=== PATIENT | female | born 1980 | race Caucasian/White ===

== ENCOUNTER 2020-10-02 20:12 | Inpatient (IN) | payer OTHER, SELFPAY ==
[2020-10-02 20:10] VITALS: TEMP 36.9
[2020-10-02 21:01] VITALS: BP 117/73; PULSE 100
[2020-10-02 21:31] LABS: Basophils Percent Auto 0.2 % (0.2-1.2); Eosinophils Absolute Auto 0.1 K/mm3 (0-0.3); Eosinophils Percent Auto 1.2 % (0-4.4); Hematocrit 35.1 % (37.0-47.0); Hemoglobin 12.2 g/dL (12.0-15.0); Immature Granulocyte Absolute 0.03 K/mm3 (0.00-0.031); Immature Granulocyte Percent A 0.3 % (0-0.5); Lymphocytes Absolute Auto 3.48 K/mm3 (0.9-3.2); Lymphocytes Percent Auto 29.7 % (18.3-44.2); Mean Corpuscular HGB Conc 34.8 g/dl (32-36); Mean Corpuscular Hemoglobin 30.7 pg (26-34); Mean Corpuscular Volume 88.2 fl (80-100); Mean Platelet Volume 12.7 fl (7.4-10.4); Monocytes Absolute Auto 0.7 K/mm3 (0.1-0.6); Monocytes Percent Auto 5.5 % (2.6-8.5); Neutrophils Absolute Auto 7.4 K/mm3 (1.3-6.7); Neutrophils Percent Auto 63.1 % (45.5-73.1); Platelet Count Result 155 k/mm3 (150-375); Red Blood Count 3.98 M/mm3 (4.2-5.4); Red Cell Distribution Width 13.2 % (11.5-14.5); White Blood Count 11.7 K/mm3 (4.5-10.0)
[2020-10-02 22:00] VITALS: TEMP 36.6
[2020-10-02 22:01] VITALS: BP 107/72; PULSE 95
[2020-10-02 22:08] VITALS: BMI 34.1
--- NOTE | 2020-10-02 22:10 | LDADM ---
This patient, Lolly Watson, was admitted to Labor/Delivery/Recovery 106 on 10/02/20 at 20:12. Plans for labor, pain management and were discussed with patient. Patient/family oriented to hospital policies and general routines including ID bracelet, bed and alarms, visiting hours, pain management, procedures, bathroom and other care routines, personal items, smoking policy, room service/diet and guest tray routines, infant security routines, and visiting hours. Patient/Family are encouraged to report perceived risks to care and to ask questions if they do not understand what they are told or what they should do. See OBIX for further documentation.
[2020-10-02] MEDS: fentaNYL CITRATE INJ (*CRX) 100 MCG/2 ML VIAL 50 MCG IV PUSH (22:28)
[2020-10-02 23:01] VITALS: BP 103/62; PULSE 102
--- NOTE | 2020-10-02 23:46 | WPDANESEPPF ---
Anes - Initial Pre Proc Eval Procedure: labor epidural Date/Time: 10/02/20 23:46 Surgeon: Vladimir Lynch MD Pre Op Diagnosis: labor pain Pre Op Diagnosis: Leaking Patient Data Age: 40 Gender: F Height: 1.65 m Weight: 93 kg Last Vital Signs Pulse 102 H 10/02/20 23:01 BP 103/62 10/02/20 23:01 Allergies Allergy/AdvReac Type Severity Reaction Status Date / Time No Known Allergies Allergy Verified 09/30/20 12:36 Home Medications Medication Instructions Recorded Confirmed Type fluticasone propionate [Flonase] 1 spray INTRANASAL DAILY 09/30/20 09/30/20 History prenat.vits,raj,egm-hpjy-poeoj 1 tablet PO DAILY 09/30/20 09/30/20 History [ #2] valacyclovir [Valtrex] 500 mg PO DAILY 09/30/20 09/30/20 History Laboratory Tests 10/02/20 10/02/20 10/02/20 21:24 21:24 21:24 WBC 11.7 K/mm3 H K/mm3 (4.5-10.0) RBC 3.98 M/mm3 L M/mm3 (4.2-5.4) Hgb 12.2 g/dL g/dL (12.0-15.0) Hct 35.1 % L % (37.0-47.0) MCV 88.2 fl fl (80-100) MCH 30.7 pg pg (26-34) MCHC 34.8 g/dl g/dl (32-36) RDW 13.2 % % (11.5-14.5) Plt Count 155 k/mm3 k/mm3 (150-375) MPV 12.7 fl H fl (7.4-10.4) Immature Gran % (Auto) 0.3 % % (0-0.5) Neut % (Auto) 63.1 % % (45.5-73.1) Lymph % (Auto) 29.7 % % (18.3-44.2) [place] % (Auto) 5.5 % % (2.6-8.5) Eos % (Auto) 1.2 % % (0-4.4) Baso % (Auto) 0.2 % % (0.2-1.2) Lymph # (Auto) 3.48 K/mm3 H K/mm3 (0.9-3.2) [place] # (Auto) 0.7 K/mm3 H K/mm3 (0.1-0.6) Eos # (Auto) 0.1 K/mm3 K/mm3 (0-0.3) Baso # (Auto) 0.0 K/mm3 K/mm3 (0.0-0.1) Abs Immat Gran (auto) 0.03 K/mm3 K/mm3 (0.00-0.031) Absolute Neuts (auto) 7.4 K/mm3 H K/mm3 (1.3-6.7) Absolute Nucleated RBC 0.0 K/mm3 K/mm3 (0.0-0.012) Nucleated RBC % 0.0 % % (0.0-0.2) RPR Pending Blood Type A Positive Antibody Screen Negative Patient hx anesthesia problems: none Family hx anesthesia problems: none PMFSH Family History Family History (Updated 09/30/20 @ 12:39 by Danyell Quiroz RN) Grandparent Type 2 diabetes mellitus Skin cancer Father Hypertension High cholesterol Skin cancer Social History Social History Smoking status: Never smoker Substance use: never Spiritual care concerns: No Anes - Eval Final PreProcedure Day of Procedure 10/02/20 23:46 Patient weight: obese ASA classification: II Anesthesia type and monitoring: regional epidural Informed Consent: The patient's anesthetic plan and its attendant risks and benefits were discussed with the patient/family/POA. Questions were solicited and answers provided to the satisfaction of the patient/family/POA.
[2020-10-03] VITALS (115 sets, daily range): BP systolic 68–134; BP diastolic 39–101; PULSE 73–206; RESP 16–18; TEMP 36.6–37.4; O2SAT 70–100
[2020-10-03] MEDS: LACTATED RINGERS 1,000 ML 125 ML IV CONT ×2 (00:19→01:05)
[2020-10-03] MEDS: ACETAMINOPHEN 500 MG TABLET 1000 MG PO (02:03)
[2020-10-03] MEDS: OXYTOCIN 30 UNITS/NS 500 ML 30 UNITS/500 ML BAG IV CONT (02:06)
--- NOTE | 2020-10-03 06:42 | WPDOBADMIT ---
Obstetrics - Admit Note Admission Note: record reviewed. Additions to the history and/or subsequent changes in the physical findings follow. 40 y/o at 37 1/7 weeks here after a gush of fluid. unremarkable. Comfortable with epidural. Labor has been augmented with oxytocin. AVSS NST reactive TOCO: contractions every 2-4 min ABD soft, nontender, gravid, vertex EXT nontender Cervix C/+2 A: IUP 37 1/7 weeks with SROM, labor. P: Begin pushing. Anticipate .
--- NOTE | 2020-10-03 06:47 | PM.OBPRVD ---
OB - Delivery Note Procedure Delivery date: 10/03/20 Procedure: Intrapartal events: None Induction method: none Delivery augmentation: pitocin Delivery monitor: external FHT and external uterine Route of delivery: Laceration Description: Perineal - 1st Degree Delivery repair: vicryl (3-0) Specimen: Yes (cord blood) Quantitative Blood Loss (ml): 120 Anesthesia type: Epidural Disposition: PACU Complications: None Narrative: 40 y/o at 37 1/7 weeks gestation who presented to the hospital after a gush of fluid. She received an epidural for pain control. Labor was augmented with oxytocin. Her labor progressed and her cervix dilated completely. She pushed with good effort and delivered the 's head to the perineum, followed by the body. The nose and mouth were bulb suctioned. After a delay, the cord was clamped and cut. The was handed off the field. Cord blood was collected. The placenta delivered spontaneously and was grossly normal in appearance. The usual 3 vessel cord was noted. A first degree midline perineal laceration was sustained. This was reapproximated using 3 0 Vicryl in interrupted, figure of eight fashion. Excellent hemostasis resulted as did excellent reapproximation of the normal anatomy. Needle and instrument counts were correct. The patient was taken to recovery room in stable condition. The went to the nursery in stable condition. I was present and scrubbed for the entire delivery. Baby Date of : 10/03/20 Time of : 06:22 Weeks of gestation at delivery: 37 gender: Male Weight (pounds): 7 Weight (ounces): 10 presentation: vertex position: Left Occiput Anterior Placenta delivery description: Spontaneous and Normal Configuration cord vessel description: 3 Vessels and Nuchal Cord score one minute: 8 score five minutes: 8
--- NOTE | 2020-10-03 06:49 | PM.OBDSVD ---
DS: Admitting Diagnosis Admitting Diagnosis Admitting Diagnosis: IUP at 37 1/7 weeks SROM DS: Discharge Diagnosis Discharge Diagnosis (1) (normal spontaneous vaginal delivery): Code(s): O80 - Encounter for full-term uncomplicated delivery Status: Acute OB - DS: Summary OB Procedures : None OB Procedures Intrapartum: Spontaneous Vag Delivery OB Procedures: : None DS: Data Data Completed and Pending Labs on day of discharge: Labs from last 24 hours 10/02/20 10/02/20 10/02/20 21:24 21:24 21:24 WBC 11.7 H RBC 3.98 L Hgb 12.2 Hct 35.1 L MCV 88.2 MCH 30.7 MCHC 34.8 RDW 13.2 Plt Count 155 MPV 12.7 H Immature Gran % (Auto) 0.3 Neut % (Auto) 63.1 Lymph % (Auto) 29.7 [place] % (Auto) 5.5 Eos % (Auto) 1.2 Baso % (Auto) 0.2 Lymph # (Auto) 3.48 H [place] # (Auto) 0.7 H Eos # (Auto) 0.1 Baso # (Auto) 0.0 Abs Immat Gran (auto) 0.03 Absolute Neuts (auto) 7.4 H Absolute Nucleated RBC 0.0 Nucleated RBC % 0.0 RPR Pending Blood Type A Positive Antibody Screen Negative Discharge Plan Discharge Attending physician on discharge: Vladimir Lynch Discharging Clinician: Vladimir Lynch Patient Disposition: Home, Self-Care Activity: pelvic rest Diet: regular Discharge Instructions: Call or return if temperature above 100.4? F, increased abdominal pain, increased vaginal bleeding or any new problems. Stand Alone Forms: General Discharge Information Follow-up/Referrals: Vladimir Lynch MD [Physician] - 6 Weeks Discharge Medications: New ibuprofen 600 mg tablet 600 mg PO Q6H PRN (Reason: cramps) Qty: 30 RF: 0 No Action valacyclovir [Valtrex] 500 mg Tablet 500 mg PO DAILY RF: 0 fluticasone propionate [Flonase] 50 mcg/actuation [place],Suspension 1 spray INTRANASAL DAILY RF: 0 #2 Tablet 1 tablet PO DAILY RF: 0 Date of admission: 10/02/20 20:12 Primary Care Provider: Sarah,Natlie Admitting Provider: Vladimir Lynch Attending physician on admission: Vladimir Lynch Condition: Stable
[2020-10-03 06:50] LABS: Rapid Plasma Reagin Non-Reactive (NonReactive)
[2020-10-03] MEDS: OXYTOCIN 30 UNITS/NS 500 ML 30 UNITS/500 ML BAG 125 UNITS IV CONT (07:05)
[2020-10-03] MEDS: WITCH HAZEL 40 PADS 1 PAD TOPICAL (09:09)
[2020-10-03] MEDS: BENZOCAINE 20% AER SPR (*SP) 56 GM CAN 1 SPRAY TOPICAL (09:10)
--- NOTE | 2020-10-03 09:30 | PC.NURSE ---
Patient transferred to post room #276 per wheelchair from labor and delivery. Support person present. Oriented to unit, room, information board, rooming in, admission packet and security measures. Patient verbalizes understanding.
[2020-10-03] MEDS: IBUPROFEN 600 MG TABLET PO ×3 (11:11→23:57)
[2020-10-03] MEDS: MULTIVIT/MIN/PREN/FOL AC/IRON TABLET 1 TAB PO (11:11)
--- NOTE | 2020-10-03 11:15 | PC.NURSE ---
Mother called out for assist with feeding. Consulted with patient, reports has fed eagerly first feeding. Reviewed infant feeding cues, frequencies, duration of feedings, feeding elimination flow sheet, and signs of adequate intake. Demonstrated stimulation techniques to wake for feeding. Assisted with infant to breast. Reviewed positioning/alignment in cross cradle, holding breast in U hold and guided asymmetrical latch on. was sleepy and unable to latch correctly within 15 minute attempt. made a few weak efforts to suckle. Suggested skin to skin and attempt again in 30 minutes. Infant is 37 week, discussed near term infant are freq. sleepy the first few days and need to be stimulated to wake to feed and during entire feeding to keep awake and nursing.
--- NOTE | 2020-10-03 12:40 | PC.NURSE ---
Demonstrated stimulation techniques to wake infant for feeding. Reviewed feeding cues, frequencies, duration of feedings, feeding elimination flow sheet, and signs of adequate intake. Assisted with infant to breast. Reviewed positioning/alignment in cross cradle, holding breast in U hold and guided asymmetrical latch on. Infant was sleepy and unable to latch correctly within 15 minute attempt. made a few weak efforts to suckle. Small amounts of sweet ease and formula to entice infant to feed with no success. Mother will bottle feed. Assisted mother with bottle feeding, infant sleepy and suckling intermittently. Advised should have 15 mls by 1300 or to call out for primary RN.
[2020-10-04 00:05] VITALS: BP 109/67; PULSE 82; RESP 18; TEMP 36.6; O2SAT 97
[2020-10-04 04:27] VITALS: BP 117/79; PULSE 76; RESP 18; TEMP 36.9; O2SAT 97
[2020-10-04 05:21] LABS: Hemoglobin 11.6 g/dL (12.0-15.0)
[2020-10-04] MEDS: IBUPROFEN 600 MG TABLET PO ×3 (06:23→18:55)
--- NOTE | 2020-10-04 08:59 | WPDANLDPN2 ---
Anes-Prog Note L&D Date/Time: 10/04/20 08:59 Comfortable throughout: labor and delivery Neuraxial method: epidural Epidural/Spinal procedure site: clean & non-tender Neuro status: Neuro function grossly intact. Cardiovascular status: normal Respiratory status: normal Airway patency: baseline Mental status: baseline Post-Op hydration status: normal Vital Signs: Last Vital Signs Temp 36.9 C 10/04/20 04:27 Pulse 76 10/04/20 04:27 Resp 18 10/04/20 04:27 BP 117/79 10/04/20 04:27 Pulse Ox 97 10/04/20 04:27 Pain score (VAS): 0/10 Post-procedural complaints: none Patient feedback: Patient satisfied with anesthetic care.
[2020-10-04 10:05] VITALS: BP 106/72; PULSE 85; RESP 18; TEMP 36.9; O2SAT 98
--- NOTE | 2020-10-04 11:13 | PM.OBPNVD ---
OB - PN: Subj Subjective Date/time seen: 10/04/20 11:13 Narrative: Pain OK. Would like circumcision for son. Would like to go home. OB - PN: Obj Data Labs CBC & Chem 7: 10/04/20 04:25 Labs: Laboratory Results - last 24 hr 10/04/20 04:25 Hgb 11.6 L Hct 34.0 L OB - PN A/P Plan Comments: A: PPD#1, doing well. P: Reviewe circ. Home to f/u 6 weeks. Exam Psych: Other: AVSS ABD soft, nontender, fundus firm EXT nontender
[2020-10-04] MEDS: MULTIVIT/MIN/PREN/FOL AC/IRON TABLET 1 TAB PO (12:16)
[2020-10-04] MEDS: DOCUSATE SODIUM 100 MG CAPSULE PO (12:17)
[2020-10-04 18:42] VITALS: BP 107/71; PULSE 76; RESP 18; TEMP 37.2; O2SAT 98
[2020-10-04] MEDS: ACETAMINOPHEN 325 MG TABLET 650 MG PO (20:25)
--- NOTE | 2020-10-05 02:02 | PM.OBPNVD ---
OB - PN: Subj Subjective Date/time seen: 10/05/20 02:02 Narrative: Pain OK. Would like to go home. OB - PN: Obj Data Labs CBC & Chem 7: 10/04/20 04:25 Labs: Laboratory Results - last 24 hr 10/04/20 04:25 Hgb 11.6 L Hct 34.0 L OB - PN A/P Plan Comments: A: PPD#2, doing well. P: Home to f/u 6 weeks. Exam Psych: Other: AVSS ABD soft, nontender, fundus firm EXT nontender
[2020-10-05] MEDS: ACETAMINOPHEN 325 MG TABLET 650 MG PO ×2 (06:09→13:01)
[2020-10-05] MEDS: IBUPROFEN 600 MG TABLET PO ×2 (06:09→13:00)
[2020-10-05] MEDS: BENZOCAINE 20% AER SPR (*SP) 56 GM CAN 1 SPRAY TOPICAL (07:35)
--- NOTE | 2020-10-05 07:39 | PC.NURSE ---
10/04/2020 at 1945 Patient viewed the discharge video Mother & Baby Care, The First Two Weeks . Patient was given the opportunity and encouraged to ask questions. Patient verbalized understanding of information shared and has been given the mother/baby guide for home reference.
[2020-10-05] MEDS: LANOLIN (LANSINOH) 7.5 GM CREAM 1 APPLIC TOPICAL (07:41)
[2020-10-05] MEDS: WITCH HAZEL 40 PADS 1 PAD TOPICAL (07:41)
[2020-10-05] MEDS: MULTIVIT/MIN/PREN/FOL AC/IRON TABLET 1 TAB PO (07:41)
[2020-10-05] MEDS: DOCUSATE SODIUM 100 MG CAPSULE PO (07:41)
[2020-10-05 08:00] VITALS: BP 124/69; PULSE 16; RESP 88; TEMP 36.8
--- NOTE | 2020-10-05 11:14 | PC.NURSE ---
Discharge instructions given to pt including follow up appt. date and time. Pt. verbalized understanding. No questions or concerns voiced. Very pleasant and cooperative. at side.
== END 2020-10-05 13:51 | disposition home or self-care (01) | DRG 807 ==
LOC: ANHLDR 10-03 06:50 → ANHOB2 10-03 09:40
PROVIDERS: Admitting Provider Obstetrics & Gynecology; PCP Physician Assistant; Visit Provider Obstetrics & Gynecology
DX: O76 Abnormality in fetal heart rate and rhythm complicating labor and delivery (principal); Z37.0 Single live birth; O70.0 First degree perineal laceration during delivery; O69.81X0 Labor and delivery complicated by cord around neck, without compression, not applicable or unspecified; Z3A.37 37 weeks gestation of pregnancy
CPT/HCPCS: 36415; 85014; 85018; 85025; 86592; 86850; 86900; 86901; A9270; J2590; J2795; J3010; J7120

== ENCOUNTER 2022-12-05 08:12 | Emergency (ER) | payer OTHER, SELFPAY ==
--- NOTE | ~2022-12-05 | XR_ITS ---
EXAMINATION: XR finger 2nd RT min 2V DATE: 12/05/2022 08:29 INDICATION: Right hand second digit injury. TECHNIQUE: 4 views of right hand second digit were obtained. COMPARISON: None. FINDINGS: Bone alignment is normal. There is a chip avulsion fracture of palmar base of second middle phalanx. 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 IMPRESSION: 1. Chip avulsion fracture of palmar base of second middle phalanx. Reviewed, dictated and finalized at location A.
--- NOTE | 2022-12-05 08:17 | ED.UPPEXIN ---
HPI - Extremity Injury (Upper) General Chief Complaint: Extremity Injury, Upper Stated Complaint: rt index injury injury Source: patient and RN notes reviewed History of Present Illness HPI narrative: 42-year-old female presents to urgent care with complaints of left index finger pain and swelling. Patient states yesterday she was playing catch with a basketball when the ball hit her finger just right. Patient denies any numbness, tingling, or any other injuries. Patient has no other complaints. Related Data Home Medications Medication Instructions Recorded Confirmed fluticasone propionate 50 1 spray intranasal DAILY 09/30/20 09/30/20 mcg/actuation nasal spray,suspension prenat.vits,raj,axb-oucm-rymkj 1 tablet PO DAILY 09/30/20 09/30/20 valacyclovir 500 mg tablet 500 mg PO DAILY 09/30/20 09/30/20 (Valtrex) fluoxetine 20 mg capsule mg 12/05/22 levonorgestrel-ethinyl estradiol tablet 12/05/22 0.1 mg-20 mcg tablet (Vienva) Allergies Allergy/AdvReac Type Severity Reaction Status Date / Time No Known Allergies Allergy Verified 12/05/22 08:18 Review of Systems Review of Systems: CONSTITUTIONAL: Denies fever, chills, or sweats. EYES: Denies visual changes, redness, or discharge. ENT: Denies otalgia and sore throat CARDIOVASCULAR: Denies chest pain, palpitations, or edema. RESPIRATORY: Denies cough or dyspnea. GASTROINTESTINAL: Denies abdominal pain, nausea, vomiting, or diarrhea. GENITOURINARY: Denies dysuria or hematuria. SKIN: Denies rash or itching. MUSCULOSKELETAL: left index finger pain and swelling NEUROLOGIC: Denies headache, numbness, or weakness. Pertinent positives per HPI. PMFSH Family History Family History (Updated 09/30/20 @ 12:39 by Danyell Quiroz RN) Grandparent Type 2 diabetes mellitus Skin cancer Father Hypertension High cholesterol Skin cancer Social History Social History Smoking status: Never smoker Substance use: never Spiritual care concerns: No Comments At the time of my signature, I reviewed and agree with the nursing past medical, surgical, social, and family history. There is no relevant family history pertinent to the patient complaint. Exam Narrative: GENERAL: This is a well-nourished, well-developed patient, in no apparent distress. HEAD: normocephalic, atraumatic. EYES: Sclera clear/white. Vision is grossly intact. EARS: External ears normal, auditory canals clear and without drainage. Hearing grossly intact. NOSE: External nose normal with no obvious nasal discharge, nares without redness, no rhinorrhea. THROAT: Mucous membranes moist, posterior pharynx clear. NECK: Neck supple, non-tender without lymphadenopathy, masses or thyromegaly. CARDIOVASCULAR: Regular rate RESPIRATORY: No respiratory distress GASTROINTESTINAL: Abdomen soft, non-tender, nondistended. Bowel sounds are active. No hepato-splenomegaly, or palpable masses. No guarding. SKIN: warm, intact with no suspicious lesions or rash, good texture and turgor. NEURO: awake, alert, and oriented to person, place and time. There were no obvious focal neurologic abnormalities. EXTREMITIES:Left index finger swollen and tender over the PIP joint and proximal phalanx. BACK: Nontender without deformity or crepitance. No flank tenderness. Course Course Level of Care: Express Care Visit Vital Signs Vital signs: Vital Signs Temperature 97.3 F L 12/05/22 08:20 Pulse Rate 71 12/05/22 08:20 Respiratory Rate 16 12/05/22 08:20 Blood Pressure 125/83 12/05/22 08:20 Pulse Oximetry 99 12/05/22 08:20 Temperature 97.3 F L 12/05/22 08:20 Pulse Rate 71 12/05/22 08:20 Respiratory Rate 16 12/05/22 08:20 Blood Pressure 125/83 12/05/22 08:20 Pulse Oximetry 99 12/05/22 08:20 Reviewed MDM - Extremity Injury (Upper) MDM Narrative Medical decision making narrative: Use the RICE method at home. May take ibuprofen and/or Tylenol if needed. follow-u
[2022-12-05 08:20] VITALS: BP 125/83; PULSE 71; RESP 16; TEMP 36.3; O2SAT 99
== END 2022-12-05 08:55 | disposition home or self-care (01) ==
PROVIDERS: Emergency Provider Nurse Practitioner Family; PCP Internal Medicine
DX: S62.620A Displaced fracture of middle phalanx of right index finger, initial encounter for closed fracture (principal); W21.03XA Struck by baseball, initial encounter; F41.9 Anxiety disorder, unspecified; F32.A Depression, unspecified; Z86.16 Personal history of COVID-19
CPT/HCPCS: 29125; 73140; 99214; G0463

== ENCOUNTER → 2022-12-09 15:49 | Outpatient (CLI) | payer OTHER, SELFPAY ==
--- NOTE | ~2022-12-09 | MM_ITS ---
EXAMINATION: MM screening wiliam BI w mel HISTORY: Screening mammogram TECHNIQUE: Craniocaudal and mediolateral oblique 3-D tomosynthesis images were obtained and synthetic 2-D images were generated. CAD analysis was submitted and interpreted. COMPARISON: None, baseline BREAST PARENCHYMAL COMPOSITION: The breasts are almost entirely fatty. FINDINGS: No suspicious mass, calcification, or architectural distortion are identified in either greta ast to suggest malignancy. IMPRESSION: 1. No mammographic evidence of malignancy. 2. Recommend routine screening mammography in one year. BI-RADS Category 1: Negative Reviewed, dictated and finalized at location A.
== END ==
PROVIDERS: PCP Internal Medicine; Visit Provider Obstetrics & Gynecology
DX: Z12.31 Encounter for screening mammogram for malignant neoplasm of breast (principal)
CPT/HCPCS: 77063; 77067

== ENCOUNTER 2023-04-15 08:47 | Emergency (ER) | payer OTHER, SELFPAY ==
[2023-04-15 09:01] VITALS: BP 106/82; PULSE 99; RESP 16; TEMP 36.5; O2SAT 100
--- NOTE | 2023-04-15 09:19 | ED.GENADULT ---
HPI - General Adult General Chief complaint: Upper Respiratory Infection Stated complaint: COUGH Time Seen by Provider: 04/15/23 09:20 Source: patient, RN notes reviewed and old records reviewed Mode of arrival: ambulatory Limitations: no limitations History of Present Illness HPI narrative: 42year old female who presents to [facility] care with complaints of loose nonproductive cough for the past 3 weeks which is worse at night. Patient reports that she does have history of sinus allergies and takes daily Zyrtec and nasal spray. Patient reports that she has taken OTC cough medications and did take some cold and flu medication without resolution of her symptoms. Patient denies any known fevers, chills or sweats, denies any dyspnea, respirations even and nonlabored with SAO2 100% on room air MD complaint: cough Onset (ago): week(s) (3) Associated symptoms: cough and other (post nasal drainage) Treatments prior to arrival: other (Zyrtec, nasal spray, OTC cough meds and cold and flu medication) Related Data Home Medications Medication Instructions Recorded Confirmed fluticasone propionate 50 1 spray intranasal DAILY 09/30/20 04/15/23 mcg/actuation nasal spray,suspension cetirizine 10 mg tablet (Zyrtec) 10 mg PO DAILY 12/05/22 04/15/23 fluoxetine 20 mg capsule 20 mg PO DAILY 12/05/22 04/15/23 levonorgestrel-ethinyl estradiol 1 tablet PO DAILY 12/05/22 04/15/23 0.1 mg-20 mcg tablet (Vienva) fenofibrate 160 mg tablet 160 mg PO DAILY 04/15/23 04/15/23 Allergies Allergy/AdvReac Type Severity Reaction Status Date / Time No Known Allergies Allergy Verified 04/15/23 08:59 Review of Systems Review of Systems: CONSTITUTIONAL: Denies malaise, chills, sweats, or fever. EYES: Denies visual changes, redness, or discharge. ENT: Reports some rhinorrhea, congestion,no sinus pain,no otalgia and no sore throat. CARDIOVASCULAR: Denies chest pain, palpitations, or edema. RESPIRATORY: Reports cough.? Denies dyspnea. GASTROINTESTINAL: Denies abdominal pain, nausea, vomiting, diarrhea SKIN: Denies rash or itching. MUSCULOSKELETAL: Denies myalgia. NEUROLOGIC: anterior headache. All systems reviewed & are unremarkable except as noted in HPI and below PMFSH Past Medical History Medical History (Updated 04/15/23 @ 09:49 by Marbella Phillips NP) Environmental allergies Surgical History Surgical History (Updated 04/15/23 @ 09:49 by Marbella Phillips NP) History of varicose vein ligation and stripping Family History Family History (Updated 09/30/20 @ 12:39 by Danyell Quiroz RN) Grandparent Type 2 diabetes mellitus Skin cancer Father Hypertension High cholesterol Skin cancer Social History Social History Smoking status: Never smoker Substance use: never Spiritual care concerns: No Comments At time of signature, agree with nursing past medical, surgical, social and family history. There is no relevant family history pertinent to the presenting complaint Exam Narrative: GENERAL: Well-appearing, well-nourished, and in no acute distress. HEAD: Normocephalic EYES: PERRLA, conjunctivae clear ENT: Nares clear, turbinates edematous and erythematous, clear discharge. Mucous membranes moist. TM pearly hernadez with dull light reflex bilaterally; no tragal tenderness. Oropharynx erythematous without lesions. Tonsils not enlarged and without exudate, no drooling, no hoarseness, no trismus, uvula midline.post nasal discharge NECK: Supple. No lymphadenopathy CHEST: Clear to auscultation, breath sounds equal. No wheezing, rhonchi, rales, or stridor. No respiratory distress, speaks in full sentences.cough for 3 weeks loose/ nonproductive. no tachypnea, SAO2 100% on room air. HEART: Regular rate and rhythm. No murmur heard. SKIN: Warm, dry, no rash. NEURO: Alert and oriented x3. PSYCH: Normal mood and affect Course Course Emergency Course: Patient is aware of diagnosis, underst
== END 2023-04-15 09:33 | disposition home or self-care (01) ==
PROVIDERS: Emergency Provider Registered Nurse; PCP Internal Medicine
DX: J01.40 Acute pansinusitis, unspecified (principal); R05.1 Acute cough
CPT/HCPCS: 99213; G0463

== ENCOUNTER 2023-08-11 18:01 | Emergency (ER) | payer OTHER, SELFPAY ==
--- NOTE | 2023-08-11 18:23 | ED.URI ---
HPI - URI/Sore Throat General Chief Complaint: Upper Respiratory Infection Stated Complaint: Sore throat Time Seen by Provider: 08/11/23 18:16 Source: patient Mode of arrival: ambulatory Limitations: no limitations History of Present Illness HPI Narrative: Patient presents to today complaining of sore throat since yesterday. Denies any additional symptoms to include congestion, rhinorrhea, fever, cough, shortness of breath. She currently rates her pain 7/10 and has been taking Tylenol and using salt water gargles without relief. States child is sick with URI symptoms at home. Related Data Home Medications Medication Instructions Recorded Confirmed fluticasone propionate 50 1 spray intranasal DAILY 09/30/20 08/11/23 mcg/actuation nasal spray,suspension cetirizine 10 mg tablet (Zyrtec) 10 mg PO DAILY 12/05/22 08/11/23 fluoxetine 20 mg capsule 20 mg PO DAILY 12/05/22 08/11/23 levonorgestrel-ethinyl estradiol 1 tablet PO DAILY 12/05/22 08/11/23 0.1 mg-20 mcg tablet (Vienva) fenofibrate 160 mg tablet 160 mg PO DAILY 04/15/23 08/11/23 Allergies Allergy/AdvReac Type Severity Reaction Status Date / Time No Known Allergies Allergy Verified 08/11/23 18:09 Review of Systems Review of Systems: CONSTITUTIONAL: Denies body aches, fever, chills, or sweats. EYES: Denies visual changes, redness, or discharge. ENT: Denies rhinorrhea, congestion, or otalgia.+ sore throat CARDIOVASCULAR: Denies chest pain, palpitations, or edema. RESPIRATORY: Denies cough or dyspnea. GASTROINTESTINAL: Denies abdominal pain, nausea, vomiting, or diarrhea. GENITOURINARY: Denies dysuria or hematuria. SKIN: Denies rash, itching, or wounds. MUSCULOSKELETAL: Denies back pain, joint pain, or myalgia. NEUROLOGIC: Denies headache, numbness, tingling, or weakness. PSYCH: Denies depression or anxiety. [facility] Past Medical History Medical History Environmental allergies Surgical History Surgical History History of varicose vein ligation and stripping Family History Family History Grandparent Type 2 diabetes mellitus Skin cancer Father Hypertension High cholesterol Skin cancer Social History Social History Smoking status: Never smoker Substance use: never Spiritual care concerns: No Comments At time of signature, I have reviewed and agree with nursing past medical, surgical, social and family history unless otherwise noted. Please see nursing chart for further information. There is no relevant family history pertinent to the presenting complaint Exam Narrative: GENERAL: Well-appearing, well-nourished, and in no acute distress. HEAD: Normocephalic, atraumatic. EYES: EOMI. No redness or drainage. Conjunctivae normal. ENT: Mucous membranes pink and moist. Nares clear. No rhinorrhea. TMs normal bilaterally. Throat without erythema or edema. No exudate. Uvula midline. NECK: Normal AROM. Supple. No lymphadenopathy. CHEST: No respiratory distress. Clear to auscultation. HEART: Regular rate and rhythm. No murmur appreciated. EXTREMITIES: Normal range of motion. No edema. SKIN: Warm, dry, no rash. Capillary refill normal. Normal skin turgor. NEURO: No focal deficits. Alert and oriented x3. Gait steady. PSYCH: Normal affect. No signs of depression or anxiety. Course Course Level of Care: Express Care Visit Vital Signs Vital signs: Vital Signs Temperature 98 F 08/11/23 18:25 Pulse Rate 96 08/11/23 18:25 Respiratory Rate 16 08/11/23 18:25 Blood Pressure 122/73 08/11/23 18:25 Pulse Oximetry 98 08/11/23 18:25 Temperature 98 F 08/11/23 18:25 Pulse Rate 96 08/11/23 18:25 Respiratory Rate 16 08/11/23 18:25 Blood Pressure 122/73
[2023-08-11 18:25] VITALS: BP 122/73; PULSE 96; RESP 16; TEMP 36.6; O2SAT 98
== END 2023-08-11 18:49 | disposition home or self-care (01) ==
PROVIDERS: Emergency Provider Nurse Practitioner; PCP Internal Medicine
DX: J02.9 Acute pharyngitis, unspecified (principal); Z20.822 Contact with and (suspected) exposure to COVID-19
CPT/HCPCS: 87081; 87426; 87804; 87880; 99213; G0463

== ENCOUNTER 2024-08-03 10:06 | Outpatient (CLI) | payer OTHER, SELFPAY ==
--- NOTE | ~2024-08-03 | MM_ITS ---
EXAMINATION: MM screening wiliam BI w mel HISTORY: Screening mammogram TECHNIQUE: Craniocaudal and mediolateral oblique 3-D tomosynthesis images were obtained and synthetic 2-D images were generated. CAD analysis was submitted and interpreted. COMPARISON: 12/09/2022 BREAST PARENCHYMAL COMPOSITION:Not Dense. The breasts are almost entirely fatty FINDINGS: No suspicious mass, calcification, or architectural distortion are identified in either greta ast to suggest malignancy. There has been no suspicious interval change. IMPRESSION: No mammographic evidence of malignancy. Recommend routine screening mammography in one year. BI-RADS Category 1: Negative Reviewed, dictated and finalized at location . APPLICATIONS REPRESENTATIVE
== END 2024-08-03 10:07 | disposition home or self-care (01) ==
PROVIDERS: PCP Internal Medicine; Visit Provider Obstetrics & Gynecology
DX: Z12.31 Encounter for screening mammogram for malignant neoplasm of breast (principal)
CPT/HCPCS: 77063; 77067

== ENCOUNTER 2025-05-15 09:18 | Emergency (ER) | payer OTHER, SELFPAY ==
--- NOTE | ~2025-05-15 | XR_ITS ---
EXAMINATION: XR foot LT min 3V, 05/15/2025 9:33 CDT HISTORY: left toe injury stubbed toe last night, no surg COMPARISON: No comparisons available. Findings: There is a nondisplaced fracture distal aspect of the proximal phalanx fifth digit with intra-articular extension No significant degenerative changes. Soft tissues unremarkable. Impression: Fractures detailed above Reviewed, dictated and finalized at location P. Impression: Fractures detailed above
[2025-05-15 09:29] VITALS: BP 121/88; PULSE 85; RESP 16; TEMP 36.4; O2SAT 99
--- NOTE | 2025-05-15 10:12 | ED.GENADULT ---
HPI - General Adult General Chief complaint: Extremity Injury, Lower Stated complaint: INJURED L TOE Source: patient Mode of arrival: ambulatory Limitations: no limitations History of Present Illness HPI narrative: Pt presents for evaluation of pain in the fifth digit of the left foot since yesterday. She states she stubbed her toe against her couch. She does not provide me with the descriptive quality are numerical rating to the pain. She states pain is worse with movement and weight-bearing. She has taken Tylenol for symptoms with improvement in her pain thereafter. Related Data Home Medications ?Medication ?Instructions ?Recorded ?Confirmed ?Last Taken ?Type fluticasone propionate 50 1 spray intranasal DAILY 09/30/20 05/15/25 10/02/20 08:00 History mcg/actuation nasal spray,suspension cetirizine 10 mg tablet (Zyrtec) 10 mg PO DAILY 12/05/22 05/15/25 Unknown History fluoxetine 20 mg capsule 20 mg PO DAILY 12/05/22 05/15/25 Unknown History fenofibrate 160 mg tablet 160 mg PO DAILY 04/15/23 05/15/25 Unknown History ezetimibe 10 mg tablet 10 mg PO DAILY 05/15/25 05/15/25 Unknown History Allergies Allergy/AdvReac Type Severity Reaction Status Date / Time No Known Allergies Allergy Verified 05/15/25 09:25 Review of Systems Review of Systems: CONSTITUTIONAL: Denies fever, chills, or sweats. EYES: Denies visual changes, redness, or discharge. ENT: Denies rhinorrhea, congestion, sore throat, or otalgia. CARDIOVASCULAR: Denies chest pain, palpitations, or edema. RESPIRATORY: Denies cough or dyspnea. GASTROINTESTINAL: Denies abdominal pain, nausea, vomiting, or diarrhea. GENITOURINARY: Denies dysuria or hematuria. SKIN: Denies rash or itching. MUSCULOSKELETAL:Reports pain in the fifth digit of the left foot NEUROLOGIC: Denies headache, numbness, dizziness, or weakness. PSYCHIATRIC: Denies anxiety or depression. [facility] Past Medical History Medical History Environmental allergies Surgical History Surgical History History of varicose vein ligation and stripping Family History Family History Grandparent Type 2 diabetes mellitus Skin cancer Father Hypertension High cholesterol Skin cancer Social History Social History Smoking status: Never smoker Substance use: never Spiritual care concerns: No Exam Narrative: GENERAL: Well-appearing, well-nourished, and in no acute distress. HEAD: Normocephalic, atraumatic. EYES: PERRLA and EOMI. ENT: Nares clear, no rhinorrhea or epistaxis. Mucous membranes moist. Oropharynx without tonsillar hypertrophy exudate or other lesions. Bilateral TMs pearly hernadez nonbulging NECK: Supple. No adenopathy or masses. No carotid bruits or JVD CHEST: Clear to auscultation. No respiratory distress. No wheezes rales or rhonchi HEART: Regular rate and rhythm. No murmur heard. Normal peripheral pulses. ABDOMEN: Soft, nontender, nondistended, normal active bowel sounds. EXTREMITIES: There is tenderness and trace swelling noted in the 5th digit of the left foot SKIN: there is ecchymosis noted to the dorsal aspect of the left foot overlying the 4th and 5th MTP joints NEURO: No focal deficits. Alert and oriented x3. PSYCH: Normal mood and affect. Course Course Emergency Course: This is a 44-year-old female who presented for evaluation of pain in the 5th digit left foot. X-ray showed proximal phalanx fracture. 4th and 5th digits were nettie-taped. She was provided with a postop shoe. She is advised to follow up with Podiatry. Advised on RICE therapy. NSAIDs for pain. Follow up with primary care provider. Go to the ER for worsening symptoms. Pt in agreement with plan of care. Level of Care: Express Care Visit Vital Signs Vital signs: Vital Signs Temperature 36.4 C L 05/15/25 09:29 Pulse Rate 85 05/15/25 09:29 Respiratory Rate 16 05/15/25 09:29 Blood Pressure 121/88 05/15/25 09:29 Pulse Oximetry 99 05/15/25 09:29 Temperature 36.4 C L 05/15/25 09:29 Pulse Rate 85 05/15/25 09:29 Respiratory Rate 16 05/15/25 09:29 Blood Pressure 121/88 05/15/25 09:29 Pulse Oximetry 99 05/15/25 09:29 Medical Decision Making Vital Signs Vital Signs: Vital Signs Temperature 36.4 C L 05/15/25 09:29 Pulse Rate 85 05/15/25 09:29 Respiratory Rate 16 05/15/25 09:29 Blood Pressure 121/88 05/15/25 09:29 Pulse Oximetry 99 05/15/25 09:29 Temperature 36.4 C L 05/15/25 09:29 Pulse Rate 85 05/15/25 09:29 Respiratory Rate 16 05/15/25 09:29 Blood Pressure 121/88 05/15/25 09:29 Pulse Oximetry 99 05/15/25 09:29 Imaging Data Radiologist's impression: cc: Colton Guerrero APRN; Telma, Marleni BARBOZA~ EXAMINATION: XR foot LT min 3V, 05/15/2025 9:33 CDT HISTORY: left toe injury stubbed toe last night, no surg COMPARISON: No comparisons available. Findings: There is a nondisplaced fracture distal aspect of the proximal phalanx fifth digit with intra-articular extension No significant degenerative changes. Soft tissues unremarkable. Impression: Fractures detailed above Discharge Plan Discharge Clinical Impression: Closed fracture of fifth toe of left foot Patient Disposition: Home Condition: Stable Instructions: Antibiotic Form, Toe Fracture (ED) Additional Instructions: APPLICATION OF ICE SHOULD HELP WITH PAIN AND SWELLING IBUPROFEN SHOULD ALSO HELP YOUR SYMPTOMS FOLLOW UP WITH PODIATRY Patient Language: Frisian Prescriptions: No Action fluoxetine 20 mg capsule 20 mg PO DAILY cetirizine [Zyrtec] 10 mg Tablet 10 mg PO DAILY fenofibrate 160 mg tablet 160 mg PO DAILY ezetimibe 10 mg tablet 10 mg PO DAILY fluticasone propionate 50 mcg/actuation [employer],Suspension 1 spray INTRANASAL DAILY Follow-up/Referrals: Telma,MD Marleni [Primary Care Provider, Unknown] Time of Disposition: 10:11
== END 2025-05-15 10:22 | disposition home or self-care (01) ==
PROVIDERS: Emergency Provider Nurse Practitioner; PCP Internal Medicine
DX: S92.515A Nondisplaced fracture of proximal phalanx of left lesser toe(s), initial encounter for closed fracture (principal); W22.03XA Walked into furniture, initial encounter
CPT/HCPCS: 73630; 99214; G0463